=== PATIENT | female | born 1965 | race Two or more races ===

== ENCOUNTER 2023-09-23 15:00 | Emergency (ER) | payer OTHER ==
[~2023-09-23] VITALS: Ht 162.6 cm; Wt 65.8 kg
[2023-09-23] MEDS ORDERED: METFORMIN HCL500 MG (16:35)
[2023-09-23] MEDS ORDERED: TRAMADOL HCL 50 MG TABLET PO STA (17:24)
[2023-09-23] MEDS ORDERED: ACETAMINOPHEN 500 MG GEL..CAP PO STA (17:24)
[2023-09-23] MEDS ORDERED: ORPHENADRINE CITRATE 30 MG/ML AMPUL IM STA (17:25)
[2023-09-23] MEDS ORDERED: DEXAMETHASONE SODIUM PHOSPHATE 4 MG/ML VIAL IM STA (17:25)
[2023-09-23] MEDS ORDERED: ACETAMINOPHEN 500 MG GEL..CAP PO ONE (17:49)
[2023-09-23] MEDS ORDERED: DEXAMETHASONE SODIUM PHOSPHATE 4 MG/ML VIAL ONE (17:49)
[2023-09-23] MEDS ORDERED: ORPHENADRINE CITRATE 30 MG/ML AMPUL ONE (17:49)
[2023-09-23] MEDS ORDERED: ONDANSETRON HCL 2 MG/ML VIAL IM STA (18:53)
[2023-09-23] MEDS ORDERED: ONDANSETRON HCL 2 MG/ML VIAL ONE (18:54)
[2023-09-23] MEDS ORDERED: TYLENOL ARTHRI650 MG PO (19:24)
[2023-09-23] MEDS ORDERED: METAXALONE800 MG PO (19:24)
== END 2023-09-23 19:45 | disposition home or self-care (01) ==
LOC: ER 15:01
DX: M54.89 Other dorsalgia (principal)